=== PATIENT | female | born 1995 | race African-American/Black ===

== ENCOUNTER 2020-03-21 15:36 | Outpatient (RCR) | payer OTHER, SELFPAY ==
--- NOTE | ~2020-03-21 | US_ITS ---
EXAMINATION: US OB BPP wo non-stress DATE: 03/21/2020 18:02 INDICATION: assessment during third trimester TECHNIQUE: Real-time pelvic ultrasound was performed. The interpreting radiologist was not present fo r the study. COMPARISON: None. FINDINGS: There is a single living fetus in vertex presentation. The placenta is anterior. heart rate is 130 beats per minute (bpm). Biophysical profile performed by the technologist: breathing (30 sec sustained breathing in 30 minutes): 2 out of 2 movement (3 gross body movements in 30 minutes): 2 out of 2 tone (one episode of eqpbtra-nsuotpbdx-eprixpd limb movement): 2 out of 2 Amniotic fluid pocket (2 cm): 2 out of 2 Total score: 8 out of 8 IMPRESSION: 1. Single living fetus in vertex presentation. 2. Biophysical profile 8 out of 8. Reviewed, dictated and finalized at location A.
[2020-03-21 16:41] LABS: Hematocrit 36.8 % (37.0-47.0); Hemoglobin 12.2 g/dL (12.0-15.0); Mean Corpuscular HGB Conc 33.2 g/dl (32-36); Mean Corpuscular Hemoglobin 29.3 pg (26-34); Mean Corpuscular Volume 88.2 fl (80-100); Mean Platelet Volume 9.6 fl (7.4-10.4); Platelet Count Result 262 k/mm3 (150-375); Red Blood Count 4.17 M/mm3 (4.2-5.4); Red Cell Distribution Width 15.9 % (11.5-14.5); White Blood Count 7.6 K/mm3 (4.5-10.0)
[2020-03-21 16:53] LABS: Alanine Aminotransferase 19 U/L (4-35); Albumin Level 3.8 g/dL (3.5-5.1); Alkaline Phosphatase 201 U/L (38-126); Anion Gap 11.6 mmol/L (7-16); Aspartate Amino Transferase 23 U/L (14-36); Bilirubin,Total 0.6 mg/dL (0.2-1.3); Blood Urea Nitrogen 8 mg/dL (7-17); Calcium 9.7 mg/dL (8.4-10.2); Carbon Dioxide 23 mmol/L (22-30); Chloride 106 mmol/L (98-107); Estimated Glomerular Filt Rate > 60; Glucose 74 mg/dL (65-105); Potassium 4.6 mmol/L (3.4-5.0); Sodium 136 mmol/L (137-145); Uric Acid 6.5 mg/dL (2.5-7.5)
[2020-03-21 18:02] VITALS: BP 116/73; PULSE 99
[2020-03-22 15:04] LABS: SARS-CoV-2 RNA PCR Negative
== END 2020-04-02 07:45 | disposition home or self-care (01) ==
LOC: ANHOBOP 15:36
PROVIDERS: PCP Obstetrics & Gynecology; Visit Provider Obstetrics & Gynecology
DX: Z34.93 Encounter for supervision of normal pregnancy, unspecified, third trimester (principal); Z3A.39 39 weeks gestation of pregnancy
CPT/HCPCS: 36415; 59025; 76819; 80053; 84550; 85027; 87635; C9803; U0003

== ENCOUNTER 2020-03-25 14:59 | Outpatient (CLI) | payer OTHER, SELFPAY ==
[2020-03-25 15:26] LABS: Hematocrit 36.4 % (37.0-47.0); Hemoglobin 12.1 g/dL (12.0-15.0); Mean Corpuscular HGB Conc 33.2 g/dl (32-36); Mean Corpuscular Hemoglobin 29.3 pg (26-34); Mean Corpuscular Volume 88.1 fl (80-100); Mean Platelet Volume 9.4 fl (7.4-10.4); Platelet Count Result 242 k/mm3 (150-375); Red Blood Count 4.13 M/mm3 (4.2-5.4); Red Cell Distribution Width 15.7 % (11.5-14.5); White Blood Count 7.5 K/mm3 (4.5-10.0)
[2020-03-25 15:29] LABS: Alanine Aminotransferase 15 U/L (4-35); Albumin Level 3.6 g/dL (3.5-5.1); Alkaline Phosphatase 195 U/L (38-126); Anion Gap 10.2 mmol/L (7-16); Aspartate Amino Transferase 20 U/L (14-36); Bilirubin,Total 0.5 mg/dL (0.2-1.3); Blood Urea Nitrogen 7 mg/dL (7-17); Calcium 9.5 mg/dL (8.4-10.2); Carbon Dioxide 22 mmol/L (22-30); Chloride 106 mmol/L (98-107); Estimated Glomerular Filt Rate > 60; Glucose 72 mg/dL (65-105); Potassium 4.2 mmol/L (3.4-5.0); Sodium 134 mmol/L (137-145); Uric Acid 6.3 mg/dL (2.5-7.5)
== END 2020-03-25 15:00 | disposition home or self-care (01) ==
PROVIDERS: PCP Physician Assistant; Visit Provider Obstetrics & Gynecology
DX: O13.9 Gestational [pregnancy-induced] hypertension without significant proteinuria, unspecified trimester (principal); Z3A.00 Weeks of gestation of pregnancy not specified
CPT/HCPCS: 36415; 80053; 84550; 85027

== ENCOUNTER 2020-03-25 15:24 | Inpatient (IN) | payer OTHER, SELFPAY ==
[2020-03-25] VITALS (15 sets, daily range): BP systolic 103–131; BP diastolic 58–83; PULSE 48–111; TEMP 36.6–36.9; BMI 41.2
--- NOTE | 2020-03-25 15:56 | LDADM ---
This patient, Loni Crisostomo, was admitted to Labor/Delivery/Recovery 106 on 03/25/20 at 15:24. Plans for labor, pain management and were discussed with patient. Patient/family oriented to hospital policies and general routines including ID bracelet, bed and alarms, visiting hours, pain management, procedures, bathroom and other care routines, personal items, smoking policy, room service/diet and guest tray routines, security routines, and visiting hours. Patient/Family are encouraged to report perceived risks to care and to ask questions if they do not understand what they are told or what they should do. See OBIX for further documentation.
[2020-03-26] VITALS (232 sets, daily range): BP systolic 98–145; BP diastolic 41–96; PULSE 82–137; RESP 20; TEMP 36.4–38.2; O2SAT 96–100
[2020-03-26] MEDS: LACTATED RINGERS 1,000 ML 125 ML IV CONT ×4 (05:09→12:51)
[2020-03-26] MEDS: OXYTOCIN 30 UNITS/NS 500 ML 30 UNITS/500 ML BAG 6 UNITS IV CONT (05:09)
--- NOTE | 2020-03-26 07:34 | WPDHPUPDATE1 ---
History and Physical Update Update Date/Time: 03/26/20 07:34 History and Physical has been reviewed, including an updated exam of the patient. There are NO changes in the patient's condition. Risks, benefits, and alternatives have been discussed and questions answered. Patient agrees to proceed with procedure. 24yo AAF [id number] at 40 4/7weeks Spontaneous onset of labor last evening pih eval negative now admitted routine augmentation
--- NOTE | 2020-03-26 07:45 | WPDOBADMIT ---
Obstetrics - Admit Note Admission Note: record reviewed. No pertinent additions to the history and/or any subsequent changes in the physical findings that are not consistent with the expected course of the were found. Additions to the history and/or subsequent changes in the physical findings follow. None. 24yo AAF [id number] at 40 4/7weeks Spontaneous onset of labor last evening pih eval negative now admitted routine augmentation
--- NOTE | 2020-03-26 07:45 | WPDHPUPDATE1 ---
History and Physical Update Update Date/Time: 03/26/20 07:45 History and Physical has been reviewed, including an updated exam of the patient. There are NO changes in the patient's condition. Risks, benefits, and alternatives have been discussed and questions answered. Patient agrees to proceed with procedure. 4yo AAF [id number] at 40 4/7weeks Spontaneous onset of labor last evening pih eval negative now admitted routine augmentation
--- NOTE | 2020-03-26 07:47 | PM.OBPNLAB ---
Pain Control Date/time seen: 03/26/20 07:47 Pain control: tolerating well Pelvic Exam Dilation (cm): 2 Effacement (%): 80 station: -3 Amniotic membrane status: Bulging Comments: arom clear af iupc placed without difficulty Contractions Monitor mode: External Contraction frequency: 5 Contraction duration: 45 Contraction pattern: Regular Contraction intensity: Moderate Status status: Category l Assessment and Plan Pitocin rate (mU/min): 8 Assessment: induction ongoing Plan: continuous present management
--- NOTE | 2020-03-26 08:08 | WPDANESEPP ---
Anes - Eval Pre Procedure Procedure: labor pain Date/Time: 03/26/20 08:08 Surgeon: unruly Pre Op Diagnosis: Induction of Labor Patient Data Age: 24 Gender: F Height: 1.6 m Weight: 105.5 kg Last Vital Signs Temp 36.4 C L 03/26/20 05:06 Pulse 108 H 03/26/20 08:00 BP 123/78 03/26/20 08:00 Allergies Allergy/AdvReac Type Severity Reaction Status Date / Time No Known Allergies Allergy Verified 03/14/20 15:29 Home Medications Medication Instructions Recorded Confirmed Type PNV cmb#95-ferrous fumarate-FA 1 tablet PO DAILY 03/14/20 03/25/20 History [] aspirin [Aspirin Low Dose] 162 mg PO DAILY 03/21/20 03/25/20 History folic acid 1 mg PO DAILY 03/21/20 03/25/20 History Patient hx anesthesia problems: none Family hx anesthesia problems: none PMFSH Family History Family History (Updated 03/14/20 @ 15:22 by Marina Coleman RN) Sibling Multiple sclerosis Father Hypertension Mother Diabetes mellitus Social History Social History (Updated 03/26/20 @ 07:40 by Cameron Marmolejo MD) Smoking status: Never smoker Second hand tobacco smoke exposure: No Alcohol intake: never Substance use: never Living arrangements: with friend(s) 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
--- NOTE | 2020-03-26 18:11 | PM.OBPNLAB ---
Pain Control Date/time seen: 03/26/20 18:11 Pelvic Exam Dilation (cm): 8 Effacement (%): 100 station: -1 Amniotic membrane status: Ruptured Contractions Monitor mode: Internal Contraction frequency: 3 Contraction duration: 45 Contraction pattern: Regular Contraction intensity: Moderate Status status: Category l Assessment and Plan Pitocin rate (mU/min): 12 Assessment: active labor and induction ongoing Plan: continuous present management
--- NOTE | 2020-03-26 20:01 | PM.OBPNLAB ---
Pain Control Date/time seen: 03/26/201942 Pain control: tolerating well and epidural Pelvic Exam Dilation (cm): 8 Effacement (%): 100 station: -1 Amniotic membrane status: Ruptured Contractions Monitor mode: Internal Contraction frequency: 3 Contraction pattern: Regular Contraction intensity: Moderate Status status: Category l Assessment and Plan Pitocin rate (mU/min): 13 Assessment: other (secondary arrest of active phase of labor) Plan: continuous present management and (if no change in one hour)
--- NOTE | 2020-03-26 20:28 | PM.OBPNLAB ---
Pain Control Date/time seen: 03/26/20 20:28 Pain control: tolerating well and epidural Pelvic Exam Dilation (cm): 10 Effacement (%): 100 station: +2 Amniotic membrane status: Ruptured Contractions Monitor mode: Internal Contraction frequency: 3 Contraction pattern: Regular Contraction intensity: Moderate Status status: Category l Assessment and Plan Pitocin rate (mU/min): 13 Assessment: active labor (complete Stage 1) Plan: continuous present management Comments: Begin stage 2 anticipate vaginal delivery soon
--- NOTE | 2020-03-26 21:18 | PM.OBPRVD ---
OB - Delivery Note Procedure Delivery date: 03/26/20 Procedure: NSVVD Midline episiotomy and repair Intrapartal events: None Induction method: none Delivery augmentation: rupture of membranes Delivery monitor: external FHT and internal uterine Route of delivery: Episiotomy description: Midline Laceration description: Perineal - 2nd Degree Delivery repair: vicryl Specimen: Yes Estimated blood loss (mL): 350 Anesthesia type: Epidural Disposition: floor Complications: none [place] Baby Date of : 03/26/20 Time of : 20:53 Weeks of gestation at delivery: 40 Infant gender: Female Weight (pounds): 8 Weight (ounces): 3 presentation: vertex position: Left Occiput Anterior Placenta delivery description: Spontaneous and Normal Configuration cord vessel description: 3 Vessels score one minute: 9 score five minutes: 9
[2020-03-26] MEDS: OXYTOCIN 30 UNITS/NS 500 ML 30 UNITS/500 ML BAG 125 UNITS IV CONT (21:23)
--- NOTE | 2020-03-26 21:28 | PM.OBDSVD ---
DS: Admitting Diagnosis Admitting Diagnosis Admitting Diagnosis: term spontaneous onset of labor DS: Discharge Diagnosis Discharge Diagnosis (1) PIH ( induced hypertension): Code(s): O13.9 - Gestational [-induced] hypertension without significant proteinuria, unspecified trimester Status: Acute (2) History of miscarriage: Code(s): Z87.59 - Personal history of other complications of , childbirth and the puerperium Status: Acute (3) Rubella non-immune status, antepartum: Code(s): O99.89 - Other specified diseases and conditions complicating , childbirth and the puerperium; Z28.3 - Underimmunization status Status: Acute (4) HPV (human papilloma virus) infection: Code(s): B97.7 - Papillomavirus as the cause of diseases classified elsewhere Status: Acute (5) Term delivered: Code(s): O80 - Encounter for full-term uncomplicated delivery Status: Acute OB - DS: Summary Hospital Course Time spent discussing smoking cessation with patient: more than 10 minutes OB Procedures : Ultrasound OB Procedures Intrapartum: Spontaneous Vag Delivery and Episiotomy OB Procedures: : None Peripartum Data Delivery Method: Natural Vaginal Laceration description: Perineal - 2nd Degree Episiotomy description: Midline complications: none Status at Discharge Functional status at discharge: independent ambulation Overall status at discharge: patient is back to baseline Time Spent with Patient Time attestation: Total time spent providing and/or coordinating discharge services: Time spent: Less than 30 minutes Exam Const: General: comfortable Limitations: no limitations Chest: Breast/axilla inspection: normal inspection of the breasts Resp: Effort & Inspection: normal respiratory effort Cardio: Rate: regular rate GI: GI Palp: Yes Soft to palpation Percussion: Yes normal to percussion : General: Yes bladder normal to inspection Psych: Appearance: grossly normal Mental Status: mental status grossly normal Affect: normal affect Attitude: cooperative Thought content: Yes Normal thought content present Judgement: Good judgement present (Psych) Discharge Plan Discharge Attending physician on discharge: Cameron Marmolejo Discharging Clinician: Cameron Marmolejo Anticipated Discharge Date/Time: 03/28/20 21:24 Patient Disposition: Home, Self-Care Activity: may shower, no straining and may drive after 2 weeks Diet: as tolerated and regular Wound Care Instructions: follow printed instructions Patient Instructions: Antibiotic Form Stand Alone Forms: General Discharge Information Follow-up/Referrals: Camerno Marmolejo MD [Physician] - Discharge Medications: Discontinued aspirin [Aspirin Low Dose] 81 mg Tablet,Delayed Release (Dr/Ec) 162 mg PO DAILY RF: 0 folic acid 1 mg Tablet 1 mg PO DAILY RF: 0 PNV cmb#95-ferrous fumarate-FA [] 28 mg iron- 800 mcg Tablet 1 tablet PO DAILY RF: 0 Date of admission: 03/25/20 15:24 Primary Care Provider: BirdieMiranda Admitting Provider: Cameron Marmolejo Attending physician on admission: Cameron Marmolejo Condition: Stable
[2020-03-26] MEDS: BENZOCAINE 20% AER SPR (*SP) 56 GM CAN 1 SPRAY TOPICAL (22:11)
[2020-03-26] MEDS: WITCH HAZEL 40 PADS 1 PAD TOPICAL (22:11)
[2020-03-27] MEDS: IBUPROFEN 600 MG TABLET PO ×3 (00:53→17:55)
--- NOTE | 2020-03-27 01:01 | PC.NURSE ---
03/26/20 0896 Patient arrived to floor via wheelchair and L&D nurse. and arrived via crib with personal belongings. Patient and oriented to room, admission packet, call light within reach. Danyelle MANTILLA
[2020-03-27 05:01] LABS: Hematocrit 29.7 % (37.0-47.0); Hemoglobin 9.9 g/dL (12.0-15.0)
--- NOTE | 2020-03-27 07:34 | WPDANLDPN2 ---
Anes-Prog Note L&D Date/Time: 03/27/20 07:34 Comfortable throughout: labor and delivery Neuraxial method: epidural Epidural/Spinal procedure site: clean & non-tender Neuro status: Neuro function grossly intact. Cardiovascular status: normal Respiratory status: normal Airway patency: baseline Mental status: baseline Post-Op hydration status: normal Vital Signs: Last Vital Signs Temp 37.2 C 03/26/20 23:30 Pulse 100 03/26/20 23:30 Resp 20 03/26/20 23:30 BP 130/65 03/26/20 23:30 Pulse Ox 100 03/26/20 23:30 I/O: Intake & Output 03/26/20 03/26/20 03/27/20 15:59 23:59 07:59 Intake Total 3000 1500 Output Total 475 Balance 3000 1500 -475 Post-procedural complaints: none Patient feedback: Patient satisfied with anesthetic care.
[2020-03-27 07:45] VITALS: BP 129/81; PULSE 87; RESP 18; TEMP 37.1; O2SAT 100
--- NOTE | 2020-03-27 08:16 | PM.OBPNVD ---
OB - PN: Subj Subjective Date/time seen: 03/27/20 08:16 Patient comments: no complaints, pain well controlled and tolerating diet [place] baby status: doing well and bottle feeding well feeding status: exclusively bottle feeding OB - PN: Obj Data Labs CBC & Chem 7: 03/27/20 04:22 Labs: Laboratory Results - last 24 hr 03/27/20 03/27/20 04:22 04:22 Hgb 9.9 L Hct 29.7 L Blood Type A Positive Antibody Screen Negative OB - PN A/P Assessment and Plan (1) Term delivered: Code(s): O80 - Encounter for full-term uncomplicated delivery Status: Acute (2) PIH ( induced hypertension): Code(s): O13.9 - Gestational [-induced] hypertension without significant proteinuria, unspecified trimester Status: Acute (3) History of miscarriage: Code(s): Z87.59 - Personal history of other complications of , childbirth and the puerperium Status: Acute (4) Rubella non-immune status, antepartum: Code(s): O99.89 - Other specified diseases and conditions complicating , childbirth and the puerperium; Z28.3 - Underimmunization status Status: Acute (5) HPV (human papilloma virus) infection: Code(s): B97.7 - Papillomavirus as the cause of diseases classified elsewhere Status: Acute Time Spent With Patient Time: Total time spent is greater than 50% in coordination of care (as documented) at patient's floor/unit and/or counseling patient:30 min Review of Systems Review of Systems: All systems reviewed & are unremarkable except as noted in HPI and below Constitutional: Constitutional: Reports no additional constitutional complaints Cardiovascular: Cardiovascular: Reports no additional cardiovascular complaints Respiratory: Respiratory: Reports no additional respiratory complaints Gastrointestinal: Gastrointestinal: Reports no additional gastrointestinal complaints Genitourinary: Genitourinary: Reports no additional female genitourinary complaints Integumentary/Breasts: Skin/Breast: Reports system reviewed and no additional complaints, except as docu Neurologic: Reports system reviewed and no additional complaints, except as documented Exam Const: General: comfortable, no acute distress, alert and awake Chest: Breast/axilla inspection: normal inspection of the breasts Resp: Effort & Inspection: normal respiratory effort Cardio: Rate: regular rate GI: Auscultation: normal bowel sounds : General: Yes bladder normal to inspection and Yes no CVA tenderness External Female Exam: normal external appearance, normal appearance of the urethra and external swelling Psych: Appearance: grossly normal Mental Status: mental status grossly normal Affect: normal affect Attitude: cooperative Judgement: Good judgement present (Psych)
[2020-03-27] MEDS: DOCUSATE SODIUM 100 MG CAPSULE PO ×2 (10:27→17:53)
[2020-03-27] MEDS: POLYSACCHARIDE IRON COMPLEX 150 MG CAPSULE PO ×2 (10:27→17:55)
[2020-03-27 19:41] VITALS: BP 110/68; PULSE 105; RESP 18; TEMP 37; O2SAT 95
--- NOTE | 2020-03-27 20:00 | PC.NURSE ---
Patient viewed the discharge video Mother & Baby Care, The First Two Weeks . Patient was given the opportunity and encouraged to ask questions. Patient verbalized understanding of information shared and has been given the mother/baby guide for home reference.
[2020-03-28 07:40] VITALS: BP 102/64; PULSE 90; RESP 16; TEMP 37; O2SAT 99
[2020-03-28] MEDS: IBUPROFEN 600 MG TABLET PO (07:59)
[2020-03-28 08:00] VITALS: PULSE 90; RESP 16; O2SAT 99
[2020-03-28] MEDS: DOCUSATE SODIUM 100 MG CAPSULE PO (08:00)
[2020-03-28] MEDS: POLYSACCHARIDE IRON COMPLEX 150 MG CAPSULE PO (08:00)
--- NOTE | 2020-03-28 08:00 | PC.NURSE ---
PT introductions made and plan of care discussed per post , pain management, bottle feeding, daily care activities and pending discharge to home. PT verbalized understanding of such care.
--- NOTE | 2020-03-28 09:42 | P.PNOB_ITS ---
OB - PN: Subj Subjective Date/time seen: 03/28/20 09:42 Patient comments: no complaints, pain well controlled, tolerating diet and flatus present [place] baby status: doing well and bottle feeding well [place] feeding status: exclusively bottle feeding OB - PN: Obj Data Labs CBC & Chem 7: 03/27/20 04:22 OB - PN A/P Assessment and Plan (1) Term delivered: Code(s): O80 - Encounter for full-term uncomplicated delivery Status: Acute (2) PIH ( induced hypertension): Code(s): O13.9 - Gestational [-induced] hypertension without significant proteinuria, unspecified trimester Status: Acute (3) History of miscarriage: Code(s): Z87.59 - Personal history of other complications of , childbirth and the puerperium Status: Acute (4) Rubella non-immune status, antepartum: Code(s): O99.89 - Other specified diseases and conditions complicating , childbirth and the puerperium; Z28.3 - Underimmunization status Status: Acute (5) HPV (human papilloma virus) infection: Code(s): B97.7 - Papillomavirus as the cause of diseases classified elsewhere Status: Acute Plan day: 2 Plan: routine care, discharge home and follow up 6 weeks Time Spent With Patient Time: Total time spent is greater than 50% in coordination of care (as documented) at patient's floor/unit and/or counseling patient: Time with patient: less than 15 minutes Review of Systems Review of Systems: All systems reviewed & are unremarkable except as noted in HPI and below Constitutional: Constitutional: Reports no additional constitutional complaints Cardiovascular: Cardiovascular: Reports no additional cardiovascular complaints Respiratory: Respiratory: Reports no additional respiratory complaints Gastrointestinal: Gastrointestinal: Reports no additional gastrointestinal complaints Genitourinary: Genitourinary: Reports no additional female genitourinary complaints Integumentary/Breasts: Skin/Breast: Reports system reviewed and no additional complaints, except as docu Neurologic: Reports system reviewed and no additional complaints, except as d ocumented Exam Const: General: comfortable and no acute distress Chest: Breast/axilla inspection: normal inspection of the breasts Resp: Effort & Inspection: normal respiratory effort Cardio: Rate: regular rate GI: Auscultation: normal bowel sounds : General: Yes bladder normal to inspection Psych: Appearance: grossly normal Mental Status: mental status grossly normal Affect: normal affect Attitude: cooperative
[2020-03-28] MEDS: MEASLES,MUMPS,RUBELLA VACCINE 0.5 ML VIAL SUB-Q (11:26)
[2020-03-28] MEDS: ACETAMINOPHEN 325 MG TABLET 650 MG PO (11:34)
[2020-03-28] MEDS: BENZOCAINE 20% AER SPR (*SP) 56 GM CAN 1 SPRAY TOPICAL (11:34)
[2020-03-28] MEDS: WITCH HAZEL 40 PADS 1 PAD TOPICAL (11:34)
--- NOTE | 2020-03-28 12:58 | PC.NURSE ---
Patient discharged to home with , ambulatory, accompanied by spouse to waiting car. Follow-up appointments confirmed.
[2020-03-29 08:59] VITALS: BP 120/80; PULSE 98; RESP 20; TEMP 37.2; O2SAT 99
--- NOTE | 2020-04-04 08:49 | PM.OBDSVD ---
DS: Admitting Diagnosis Admitting Diagnosis Admitting Diagnosis: Encounter for supervision of normal , unspecified, third trimester PIH history of miscarriage HPV DS: Discharge Diagnosis Discharge Diagnosis (1) Term delivered: Code(s): O80 - Encounter for full-term uncomplicated delivery Status: Acute (2) PIH ( induced hypertension): Code(s): O13.9 - Gestational [-induced] hypertension without significant proteinuria, unspecified trimester Status: Acute (3) History of miscarriage: Code(s): Z87.59 - Personal history of other complications of , childbirth and the puerperium Status: Acute (4) Rubella non-immune status, antepartum: Code(s): O99.89 - Other specified diseases and conditions complicating , childbirth and the puerperium; Z28.3 - Underimmunization status Status: Acute (5) HPV (human papilloma virus) infection: Code(s): B97.7 - Papillomavirus as the cause of diseases classified elsewhere Status: Acute OB - DS: Summary Hospital Course Time spent discussing smoking cessation with patient: more than 10 minutes OB Procedures : Ultrasound OB Procedures Intrapartum: Spontaneous Vag Delivery and Episiotomy OB Procedures: : None Peripartum Data Delivery Method: Natural Vaginal Laceration description: Perineal - 2nd Degree Episiotomy description: Midline complications: none [place] 1: Gender: Female Disposition of : home Status at Discharge Functional status at discharge: independent ambulation Overall status at discharge: patient is back to baseline Time Spent with Patient Time attestation: Total time spent providing and/or coordinating discharge services:30 min Time spent: Less than 30 minutes Exam Const: General: comfortable, no acute distress, alert and awake Limitations: no limitations Chest: Breast/axilla inspection: normal inspection of the breasts Resp: Effort & Inspection: normal respiratory effort Cardio: Rate: regular rate GI: GI Palp: Yes Soft to palpation Percussion: Yes normal to percussion Auscultation: normal bowel sounds : General: Yes bladder normal to inspection and Yes no CVA tenderness Manual OB Exam: Deferred manual OB exam Psych: Appearance: grossly normal Mental Status: mental status grossly normal Affect: normal affect Attitude: cooperative Thought content: Yes Normal thought content present Judgement: Good judgement present (Psych) DS: Data Data Completed and Pending Completed studies during hospitalization: Pending at discharge 07/28/20 20:57 Surgical [PTH] Routine Discharge Plan Discharge Attending physician on discharge: Cameron Marmolejo Discharging Clinician: Cameron Marmolejo Anticipated Discharge Date/Time: 03/28/20 21:24 Patient Disposition: Home, Self-Care Activity: may shower, no straining and may drive after 2 weeks Diet: as tolerated and regular Wound Care Instructions: follow printed instructions Discharge Instructions: Education: Mom and Baby Guide Given to: Mother Follow-Up: Call your delivering provider's office for an appointment to be seen in: 6 Weeks Mom and baby should come to the [facility] for the follow-up appointment. Appointment Date/Time: March 29, 2020 at 9:00 am What to expect at your follow-up visit: Blood Pressure Check Call [phone] if you are unable to keep your appointment time. BREAST CARE: * Wear a snug supportive bra. * For engorgement discomfort: Bottle Feeding: * May apply ice packs /PERINEAL CARE: * Until bleeding stops, use your jerry bottle after urinating * Change your pad frequently throughout the day * You may take sitz baths several times a day (fill your bathtub with warm water and soak for 20 minutes.) Do NOT bathe in the water * No tub baths until seen by your physician - Y
== END 2020-03-28 12:58 | disposition home or self-care (01) | DRG 560 ==
LOC: ANHLDR 03-26 21:26 → ANHOB2 03-26 23:25
PROVIDERS: Admitting Provider Obstetrics & Gynecology; PCP Physician Assistant; Visit Provider Obstetrics & Gynecology
DX: O13.4 Gestational [pregnancy-induced] hypertension without significant proteinuria, complicating childbirth (principal); Z37.0 Single live birth; Z3A.40 40 weeks gestation of pregnancy; Z87.59 Personal history of other complications of pregnancy, childbirth and the puerperium; O98.32 Other infections with a predominantly sexual mode of transmission complicating childbirth; B97.7 Papillomavirus as the cause of diseases classified elsewhere
CPT/HCPCS: 36415; 80053; 84550; 85014; 85018; 85027; 86850; 86900; 86901; 88307; 90710; A9270; J2590; J2795; J7120